=== PATIENT | male | born 1970 | race Caucasian/White ===

== ENCOUNTER 2017-06-29 20:07 | Emergency (ER) | payer OTHER ==
[~2017-06-29] VITALS: Ht 175.3 cm; Wt 118.2 kg
[2017-06-29 20:08] VITALS: BP 141/89; PULSE 94; RESP 16; TEMP 97.8; O2SAT 98
[2017-06-29] MEDS ORDERED: DOXYCYCLINE HYCLATE 100 MG CAP PO ONE (23:15)
[2017-06-29] MEDS ORDERED: LISI10TA3 PO (23:16)
[2017-06-29] MEDS ORDERED: GLIP10TA6 PO (23:16)
[2017-06-29] MEDS ORDERED: METF1000 PO (23:16)
[2017-06-29] MEDS ORDERED: DOXY100C PO (23:21)
--- NOTE | 2017-06-29 23:22 | PD ---
HPI . Insect bite Chief Complaint: Skin Problem Time Seen by Provider: 23:09 Travel History International Travel<30 days: No Contact w/Intl Traveler<30days: No Traveled to known affect area: No History of Present Illness HPI 39-year-old male his arm down on a desk at work and felt something sting his right forearm on the anterior surface. Patient presents with central reddened area with slight area of erythema around with irritation. Patient otherwise denies any shortness of breath, mouth or throat swelling or stridor, no drooling , denies any proximal red streaking or fever. Incident occurred just prior to presentation. Patient's immunizations including tetanus are up-to-date [facility] Past Medical History Narrative Medical Past medical history reviewed Cardiovascular Problems: Yes (HTN) Diabetes: Yes Social History Alcohol Use: No Tobacco Use: No Substance Use: No Allergies-Medications (Allergen,Severity, Reaction): Coded Allergies: cat dander (Verified Allergy, Severe, Anaphylaxis, 06/29/17) peanut (Verified Allergy, Mild, htn, 06/29/17) Narrative Medication Allergies and medications reviewed Review of Systems Except as stated in HPI: all other systems reviewed are Neg General / Constitutional: No: Fever Eyes: No: Visual changes HENT: No: Headaches, Neck Stiffness, Neck Pain Cardiovascular: No: Chest Pain or Discomfort Respiratory: No: Shortness of Breath, Stridor Gastrointestinal: No: Abdominal Pain Genitourinary: No: Dysuria Musculoskeletal: No: Myalgias, Arthralgias, Pain Skin: Positive Rash Neurologic: No: Weakness Psychiatric: No: Depression Endocrine: No: Polydipsia Hematologic/Lymphatic: No: Easy Bruising Physical Exam Narrative GENERAL: Awake and alert oriented 3 no acute distress SKIN: Warm and dry. Color is normal no diaphoresis cyanosis or pallor HEAD: Atraumatic. Normocephalic. EYES: Pupils equal and round. No scleral icterus. No injection or drainage. ENT: No nasal bleeding or discharge. Mucous membranes pink and moist. NECK: Trachea midline. No JVD. CARDIOVASCULAR: Regular rate and rhythm. RESPIRATORY: No accessory muscle use. Clear to auscultation. Breath sounds equal bilaterally. GASTROINTESTINAL: Abdomen soft, non-tender, nondistended. Hepatic and splenic margins not palpable. MUSCULOSKELETAL: Right forearm anterior small central area tenderness area consistent with possible sting versus bite, and surrounding 1 cm of erythema that is mildly tender. There is no foreign body noted no fluctuant head NEUROLOGICAL: Awake and alert. No obvious cranial nerve deficits. Motor grossly within normal limits. Five out of 5 muscle strength in the arms and legs. Normal speech. PSYCHIATRIC: Appropriate mood and affect; insight and judgment normal. Data Data Last Documented VS Vital Signs Date Time Temp Pulse Resp B/P (MAP) Pulse Ox O2 Delivery O2 Flow Rate FiO2 06/29/17 20:08 97.8 94 16 141/89 (106) 98 Room Air Orders Orders Doxycycline (Vibramycin) (06/29/17 23:15) MDM Medical Decision Making Medical Screen Exam Complete: Yes Emergency Medical Condition: Yes Medical Record Reviewed: Yes Differential Diagnosis Infected bite, insect bite spider bite Narrative Course Treatment was started ED. Continue his outpatient Diagnosis Primary Impression: Infected insect bite Qualified Codes: W57.XXXA - Bitten or stung by nonvenomous insect and other nonvenomous arthropods, initial encounter Patient Instructions: General Instructions, Insect Bite or Sting (ED) Additional Instructions: Warm soaks to affected area. Doxycycline 100 mg twice daily for 10 days. Follow-up with her doctor. Return for worsening Scripts Doxycycline Hyclate (Doxycycline Hyclate) 100 Mg Cap 100 MG PO BID for Infection, #20 CAP 0 Refills Prov: Ash Lewis MD 06/29/17 Disposition: 01 DISCHARGE HOME Condition: Stable Ash Lewis MD Jun 29, 2017 23:22
== END 2017-06-29 23:53 | disposition home or self-care (01) ==
LOC: NEPE 20:07
DX: S50.861A Insect bite (nonvenomous) of right forearm, initial encounter (principal); L08.9 Local infection of the skin and subcutaneous tissue, unspecified; W57.XXXA Bitten or stung by nonvenomous insect and other nonvenomous arthropods, initial encounter; Y99.0 Civilian activity done for income or pay; E11.9 Type 2 diabetes mellitus without complications; I10 Essential (primary) hypertension
CPT/HCPCS: 99283